=== PATIENT | female | born 1975 | race Hispanic/Latino ===

== ENCOUNTER 2019-04-23 07:24 | Day surgery (SDC) | payer BC ==
[2019-04-22 16:50] VITALS: BP 148/62
[2019-04-22 17:08] LABS: BASOPHILS % (AUTO) 0.6 % (0.0-5.0); EOSINOPHILS % (AUTO) 1.6 % (0.0-8.0); HEMATOCRIT 34.9 % (36-48); LYMPHOCYTES % (AUTO) 30.4 % (21.0-51.0); MEAN CORPUSCULAR HEMOGLOBIN 27.6 pg (27.0-33.0); MEAN CORPUSCULAR HGB CONC 32.9 g/dL (32.0-36.0); MEAN CORPUSCULAR VOLUME 83.7 fL (79-99); MONOCYTES % (AUTO) 6.9 % (3.0-13.0); NEUTROPHILS % (AUTO) 60.5 % (40.0-77.0); PLATELET COUNT (AUTO) 471 K/uL (130-400); RED BLOOD CELL COUNT(AUTO) 4.17 MIL/uL (4.00-5.50); RED CELL DISTRIBUTION WIDTH 18.5 % (11.0-15.5); WHITE BLOOD COUNT (AUTO) 8.1 K/uL (4.8-10.8)
[2019-04-22 17:16] LABS: CREATININE 0.8 mg/dL (0.5-1.5); POTASSIUM 4.4 mmol/L (3.5-5.1)
[2019-04-23] VITALS (17 sets, daily range): BP systolic 95–127; BP diastolic 47–85
[~2019-04-23] VITALS: Ht 162.6 cm; Wt 88.2 kg
[~2019-04-23 07:24] MED LIST: METF-444 PO; SPIR100T5 PO; TRAN650T5 PO
[2019-04-23] MEDS ORDERED: LACTATED RINGERS 1000ML 1,000 ML IV ONE (08:02)
[2019-04-23] MEDS: CEFAZOLIN SODIUM 1 GM VIAL ONE ×2 (08:23→11:05)
[2019-04-23] MEDS ORDERED: CALDOLOR 800MG+NS 250ML 250 ML IV ONE (08:43)
[2019-04-23] MEDS ORDERED: MIDAZOLAM HCL 1 MG/ML 2ML VIAL ONE (09:12)
[2019-04-23] MEDS ORDERED: PROPOFOL 10 MG/ML 20ML VIAL IV ONE (09:12)
[2019-04-23] MEDS ORDERED: LIDOCAINE PF 2% 5ML ABBOJECT ONE (09:12)
[2019-04-23] MEDS ORDERED: ONDANSETRON HCL 4 MG/2 ML VIAL ONE ×2 (09:13→13:38)
[2019-04-23] MEDS ORDERED: FENTANYL CITRATE PF 50 MCG/1 ML 2ML VIAL ONE ×2 (09:13→11:25)
[2019-04-23] MEDS ORDERED: ROCURONIUM 10MG/1ML SYR 10 MG/ML ML ONE (09:13)
--- NOTE | 2019-04-23 12:36 | NUR ---
POST-PROCEDURE RECEIVED FROM RR S/P SABRA D&C, ENDOMETRIAL ABLATION VIA STRETCHER BY BOLA FELIPE. AWAKE IN NO ACUTE DISTRESS., W/O ABDOMINAL CRAMPING. CONNECTED TO CONTINUOUS CARDIOPULMONARY MONITORING. APOLINAR PAD WITH SMALL AMOUNT OF SEROUSANGINOUS DRAINAGE. SIDE RAILS UP X2, BED IN LOWEST POSITION, CALL LIGHT W/IN REACH.
[2019-04-23] MEDS ORDERED: MEPERIDINE-PF 25 MG/ML SYG ONE (13:06)
--- NOTE | 2019-04-23 13:40 | NUR ---
NAUSEA C/O NAUSEA. ZOFRAN 4MG IVP ADMINISTERED. WILL CONTINUE TO MONITOR.
--- NOTE | 2019-04-23 13:45 | NUR ---
ACTIVITY UP TO CHAIR WITH MINIMAL ASSIST X1. GAIT STEADY.
--- NOTE | 2019-04-23 13:55 | NUR ---
NAUSEA VOMITED 50 ML OF CLEAR FLUID. PT STATES, "I FEEL BETTER"
--- NOTE | 2019-04-23 14:10 | NUR ---
DISCHARGE DAY PT DISCHARGE INSTRUCTIONS, MED REC, PT EDUCATION, NAD HOME CARE INSTRUCTIONS FOR D&C REVIEWED WITH PT AND /EDUCATED THAT SOME VAGINAL BLEEDING AND DISCHARGE IS NORMAL FOR 15 DAYS, BUT TO NOTIFY MD FOR HEAVY BLEEDING OR CLOTS, NO SEXUAL ACTIVITY, NO TAMPONS FOR 2 WEEKS. PT AND VERBALIZED UNDERSTANDING. OPPORTUNITY GIVEN TO ASK QUESTIONS. QUESTIONS ADDRESSED. PAIN MEDICATION WERE PROVIDED BY DR. MONTALVO PRIOR TO PROCEDURE. Addendum: 04/23/19 at 1554 by ZANE CHACON RN RN CORRECTION D&C
--- NOTE | 2019-04-23 14:20 | NUR ---
DISCHARGE DISCHARGED VIA W/C. AWAKE IN NO ACUTE DISTRESS. DENIES NAUSEA.
== END 2019-04-23 14:20 | disposition home or self-care (01) ==
LOC: DAH 07:24
PROVIDERS: ATTEND Obstetrics & Gynecology
DX: D25.0 Submucous leiomyoma of uterus (principal); Z90.49 Acquired absence of other specified parts of digestive tract; Z98.890 Other specified postprocedural states; Z79.899 Other long term (current) drug therapy; Z79.84 Long term (current) use of oral hypoglycemic drugs; Z82.49 Family history of ischemic heart disease and other diseases of the circulatory system; Z82.5 Family history of asthma and other chronic lower respiratory diseases
CPT/HCPCS: 36415; 58561; 58563; 80048; 82948 ×2; 84703; 85025; 86850; 86900; 86901; 88305; A4351; A4355; A4600; J0690; J1741; J2001; J2175; J2250; J2405 ×2; J2704; J3010 ×2; J7030 ×2; J7120

== ENCOUNTER 2024-11-02 14:52 | Emergency (ER) | payer BC ==
[~2024-11-02 14:52] MED LIST changes: -TRAN650T5 PO
--- NOTE | 2024-11-02 16:37 | NUR ---
PT CALLED X 4 BY BOTH PROVIDER AND MYSELF NO ANSWER
== END 2024-11-02 16:37 | disposition left against medical advice (07) ==
LOC: EDH 14:52
DX: R42 Dizziness and giddiness (principal); Z53.21 Procedure and treatment not carried out due to patient leaving prior to being seen by health care provider